=== PATIENT | female | born 1960 | race Caucasian/White ===

== ENCOUNTER 2019-08-21 | Emergency (ER) | payer MEDICARE ==
[2019-08-21 12:16] LABS: HEMOGLOBIN 11.3 g/dl (12.0-16.0); IMMATURE GRANULOCYTES 0.3 % (0.0-5.0); MEAN CELL VOLUME 93.4 fL CALC (80.0-100.0); MEAN CORPUSCULAR HGB CONC 33.2 g/L CALC (32.0-36.0); NEUT# 7.39 thou/uL (2.00-7.15); RED BLOOD COUNT 3.64 mill/uL (4.20-5.60); RED CELL DISTRI WIDTH 12.9 % (11.5-15.5)
[2019-08-21 12:37] LABS: ACT PARTIAL THROMBO TIME 29.2 SECONDS (20.0-32.5)
[2019-08-21 12:40] LABS: ALBUMIN 4.1 g/dL (3.2-5.0); ALKALINE PHOSPHATASE 57 u/l (38-126); ANION GAP 12 (6-22 (CALC)); BILIRUBIN, TOTAL 0.5 mg/dL (0.0-1.4); BUN 7 mg/dL (7-17); BUN/CREATININE RATIO 14 (12-20 (CALC)); CARBON DIOXIDE 24 mmol/l (22-30); CHLORIDE 101 mmol/l (95-108); CREATININE 0.5 mg/dL (0.5-1.0); GFR > 60 ML/MIN (>=60 (CALC)); GFR FOR AFR.AMER. > 60 ML/MIN (>=60 (CALC)); POTASSIUM 4.4 mmol/l (3.5-5.1); SGOT/AST 23 u/l (14-36); SODIUM 133 mmol/l (137-146); TOTAL PROTEIN 7.3 g/dL (6.3-8.2)
[2019-08-21] MEDS ORDERED: MEDDOSEPAK PO (14:05)
[2019-08-21] MEDS ORDERED: ASPIRIN81 MG PO (14:08)
[2019-08-21] MEDS ORDERED: CELEXA40 M1 PO (14:26)
[2019-08-21] MEDS ORDERED: CYCLOBENZAPRINE HCL PO (14:27)
[2019-08-21] MEDS ORDERED: ELIQUIS2.5 MG PO (14:28)
[2019-08-21] MEDS ORDERED: LISINOPRIL2.5 MG PO (14:29)
[2019-08-21] MEDS ORDERED: FLUTICASONE (14:29)
[2019-08-21] MEDS ORDERED: LORATADINE10 M1 PO (14:29)
[2019-08-21] MEDS ORDERED: ROSUVASTATIN CAL5 MG (14:30)
== END 2019-08-21 15:11 | disposition home or self-care (01) ==
DX: J43.9 Emphysema, unspecified (principal); Z86.711 Personal history of pulmonary embolism; Z79.01 Long term (current) use of anticoagulants; R06.02 Shortness of breath
CPT/HCPCS: Q9967

== ENCOUNTER 2019-09-19 13:49 | Observation (INO) | payer MEDICARE ==
[~2019-09-19] VITALS: Ht 160 cm; Wt 47.2 kg
[~2019-09-19 13:49] MED LIST: ASPIRIN81 MG PO; CELEXA40 M1 PO; CYCLOBENZAPRINE HCL PO; ELIQUIS2.5 MG PO; FLUTICASONE; LISINOPRIL2.5 MG PO; LORATADINE10 M1 PO; MEDDOSEPAK PO; ROSUVASTATIN CAL5 MG
--- NOTE | 2019-09-19 13:50 | NUR ---
PATIENT TO ROOM FOR EXAM. BEDSIDE TRIAGE COMPLETED.
[2019-09-19 14:51] LABS: HEMATOCRIT 34.6 % (37.0-47.0); HEMOGLOBIN 11.6 g/dl (12.0-16.0); IMMATURE GRANULOCYTES 0.7 % (0.0-5.0); MEAN CELL VOLUME 92.3 fL CALC (80.0-100.0); MEAN CORPUSCULAR HGB 30.9 pG CALC (26.0-32.0); MEAN CORPUSCULAR HGB CONC 33.5 g/L CALC (32.0-36.0); NEUT# 22.61 thou/uL (2.00-7.15); RED BLOOD COUNT 3.75 mill/uL (4.20-5.60); RED CELL DISTRI WIDTH 13.9 % (11.5-15.5)
--- NOTE | 2019-09-19 14:52 | NUR ---
PT RESTING QUIETLY ON STRETCHER, COUGHING, STATES "I GOT THE FLU SHOT HERE IN HOSPITAL LAST TIME BUT I JUST DONT FEEL GOOD"
[2019-09-19 15:13] LABS: ALBUMIN 4.4 g/dL (3.2-5.0); ALKALINE PHOSPHATASE 73 u/l (38-126); ANION GAP 14 (6-22 (CALC)); BILIRUBIN, TOTAL 0.7 mg/dL (0.0-1.4); BUN 12 mg/dL (7-17); BUN/CREATININE RATIO 26 (12-20 (CALC)); CARBON DIOXIDE 25 mmol/l (22-30); CHLORIDE 97 mmol/l (95-108); CREATININE 0.5 mg/dL (0.5-1.0); GFR > 60 ML/MIN (>=60 (CALC)); GFR FOR AFR.AMER. > 60 ML/MIN (>=60 (CALC)); POTASSIUM 4.2 mmol/l (3.5-5.1); SGOT/AST 26 u/l (14-36); SODIUM 133 mmol/l (137-146); TOTAL PROTEIN 8.4 g/dL (6.3-8.2)
[2019-09-19 15:25] LABS: MYOGLOBIN 22 ng/mL (0 - 62)
[2019-09-19] MEDS ORDERED: SPIRIVA RE1.25 MCG/A IN (15:29)
[2019-09-19] MEDS ORDERED: VENTOLIN H108 MCG/AC IN (15:30)
--- NOTE | 2019-09-19 15:45 | NUR ---
PT RESTING QUIETLY ON STRETCHER.
[2019-09-19 17:04] LABS: URINE BILIRUBIN - DIPSTICK NEGATIVE (NEGATIVE); URINE BLOOD DIPSTICK MODERATE (NEGATIVE); URINE COLOR YELLOW; URINE GLUCOSE - DIPSTICK NEGATIVE (NEGATIVE); URINE KETONE NEGATIVE (NEGATIVE); URINE LEUK ESTERASE TRACE (NEGATIVE); URINE NITRITE - DIPSTICK NEGATIVE (Negative); URINE PROTEIN - DIPSTICK 30 mg/dL (NEG-TRACE); URINE SPECIFIC GRAVITY 1.025; URINE UROBILINOGEN - DIPSTICK 0.2 E.U./dL (0.2)
[2019-09-19 17:13] LABS: URINE SQUAMOUS EPITHELIAL CELL FEW EPI/hpf (0-FEW); URINE WBC 0-2 WBC/hpf (0-5)
--- NOTE | 2019-09-19 17:17 | NUR ---
NO TEMPERATURE DURING HOSPITAL STAY. WBC COUNT HIGH, DRRenee ASKING PT ABOUT ANY STEROID USE BESIDES NASAL SPRAY ADVISED OF POSSIBLE ADMISSION.
--- NOTE | 2019-09-19 17:19 | NUR ---
ADVISED PT OF FLU B POSITIVE.
--- NOTE | 2019-09-19 18:00 | NUR ---
PT VOMITING. NOTIFIED. NEW ORDERS RECEIVED
--- NOTE | 2019-09-19 18:09 | NUR ---
TEMP REETAKEN 98.9
[2019-09-19 18:10] LABS: AMYLASE < 30 u/l (30-110); LIPASE < 10 u/l (23-300)
--- NOTE | 2019-09-19 18:58 | NUR ---
REPORT GIVEN TO MED SURG FLOOR, ROOM IS NOT READY BUT SOON CLEAN THEY WILL CALL
--- NOTE | 2019-09-19 19:33 | NUR ---
PT ARRIVED TO FLOOR VIA WHEELCHAIR ACCOMPAINED BY ER STAFF. PT ALERT AND ORIENTED. AMBULATED FROM CHAIR TO BED WITH NO ASSISTANCE NEEDED. IV SITE IN RAC APPEARS HEALTHY. PT DENIES ANY PAIN OR DISCOMFORT. NO APPARENT RESPIRATORY DISTRESS NOTED. PT ORIENTED TO ROOM AND CALL LIGHT SYSTEM. CALL LIGHT WITHIN REACH. WILL CONTINUE TO MONITOR.
--- NOTE | 2019-09-19 19:35 | NUR ---
PT TAKEN TO MED SURG WITH TELEMETRY AND W/F
[2019-09-19 19:37] VITALS: BP 110/67
--- NOTE | 2019-09-19 23:11 | NUR ---
PT RESTING IN BED WITH EYES CLOSED. NO APPARENT DISTRESS NOTED. CALL LIGHT WITHIN REACH. WILL CONTINUE TO MONITOR.
[2019-09-20] VITALS (7 sets, daily range): BP systolic 101–143; BP diastolic 59–75
--- NOTE | 2019-09-20 03:21 | NUR ---
PT RESTING IN BED WITH EYES CLOSED. NO APPARENT DISTRESS NOTED. CALL LIGHT WITHIN REACH. WILL CONTINUE TO MONITOR.
[2019-09-20 07:02] LABS: HEMATOCRIT 32.9 % (37.0-47.0); HEMOGLOBIN 10.9 g/dl (12.0-16.0); MEAN CELL VOLUME 93.2 fL CALC (80.0-100.0); MEAN CORPUSCULAR HGB 30.9 pG CALC (26.0-32.0); MEAN CORPUSCULAR HGB CONC 33.1 g/L CALC (32.0-36.0); RED BLOOD COUNT 3.53 mill/uL (4.20-5.60); RED CELL DISTRI WIDTH 13.9 % (11.5-15.5)
[2019-09-20 07:28] LABS: ANION GAP 13 (6-22 (CALC)); BUN 13 mg/dL (7-17); BUN/CREATININE RATIO 35 (12-20 (CALC)); CARBON DIOXIDE 25 mmol/l (22-30); CHLORIDE 101 mmol/l (95-108); CREATININE 0.4 mg/dL (0.5-1.0); GFR > 60 ML/MIN (>=60 (CALC)); GFR FOR AFR.AMER. > 60 ML/MIN (>=60 (CALC)); SODIUM 134 mmol/l (137-146)
--- NOTE | 2019-09-20 08:16 | NUR ---
ASSESSMENT IS COMPLETED:IV SITE IS FREE FROM REDNESS OR EDEMA. HR IS REG,PULSES ARE STRONG X4, ABD IS SOFT WITH ACTIVE BS. BREATH SOUNDS ARE COARSE IN THE LEFT LUNG. TELE MONITOR IN PLACE. CONTINUE TO OSBERVE AND MONITOR.
--- NOTE | 2019-09-20 12:30 | NUR ---
PT IS RELAXING IN BED WITH NO DISTRESS NOTED. IV SITE IS FREE FROM REDNESS OR EDEMA. PT WAS VOMITING. AND GIVEN MEDICATION FOR IT. CONTINUE TO OBSERVE AND MONITOR
--- NOTE | 2019-09-20 12:45 | NUR ---
VOMITED 100CC OF FLUID
[2019-09-20] MEDS ORDERED: SYMBICORT1 AE1 IN (14:16)
[2019-09-20] MEDS ORDERED: CRESTOR40 MG PO (14:17)
[2019-09-20] MEDS ORDERED: ELIQUIS5 MG PO (14:19)
[2019-09-20] MEDS ORDERED: FLUTICASONE PROPIONATE (14:21)
[2019-09-20] MEDS ORDERED: CELEXA20 MG PO (14:25)
[2019-09-20] MEDS ORDERED: ZESTRIL5 MG PO (14:26)
[2019-09-20] MEDS ORDERED: COREG6.25 MG PO (14:28)
[2019-09-20] MEDS ORDERED: OS-CAL 500500 M1 PO (14:29)
[2019-09-20] MEDS ORDERED: PROLIA60 MG/ML SC (14:45)
--- NOTE | 2019-09-20 16:30 | NUR ---
PT IS RELAXING IN BED WITH NO DISTRESS NOTED. O2 IN PLACE. TOLERATED CHICKEN BROTH FOR LUNCH. REQUESTING FOR SUPPER. CONTINUE TO OBSERVE AND MONITOR.
--- NOTE | 2019-09-20 19:52 | NUR ---
PT. SITTING UP IN BED WITH NO RESP. DISTRESS NOTED;C/O RIGHT SIDED NECK PAIN 01/29 AND MEDICATED WITH ORDERED PRN TRAMADOL ALONG WITH OTHER SCHED MEDS. ASSESSMENT COMPLETED. DENIES FURTHER NEEDS. CALL LIGHT IS IN REACH. WILL CONTINUE TO MONITOR.
--- NOTE | 2019-09-20 23:53 | NUR ---
RESTING IN BED WITH NO DISTRESS NOTED;DENIES NEEDS. ICE PROVIDED. VSS. URINE EMPTIED. CALL LIGHT IS IN REACH. ENCOURAGED TO CALL FOR ANY NEEDS.
--- NOTE | 2019-09-21 02:17 | NUR ---
RESTING IN BED WITH NO DISTRESS NOTED; RESP. EVEN AND UNLABORED. CALL LIGHT IS IN REACH.
[2019-09-21 03:44] VITALS: BP 104/68
--- NOTE | 2019-09-21 03:45 | NUR ---
VSS. NO DISTRESS NOTED; DENIES NEEDS/PAIN. VOICES NO CONCERNS. CALL LIGHT IS IN REACH.
[2019-09-21 07:48] VITALS: BP 109/69
--- NOTE | 2019-09-21 08:20 | NUR ---
ASSESSMENT DONE. TELE IN PLACE. PT IS A&O X3. PT STATED SOME PAIN IN NECK BUT DENIES PAIN MEDICATION AT THIS TIME. 02 AT 2L VIA NC. IVF INFUSING WELL. PT DENIES NEEDS AT THIS TIME. CALL LIGHT IN REACH.
[2019-09-21 10:39] VITALS: BP 112/65
--- NOTE | 2019-09-21 12:12 | NUR ---
PT IS USING HER CELL PHONE WITH NO S/S OF DISTRESS NOTED. PT DENIES NEEDS AT THIS TIME. CALL LIGHT IN REACH.
[2019-09-21] MEDS ORDERED: TAM75CAP PO ×2 (13:11)
[2019-09-21] MEDS ORDERED: LEVAQUIN750 MG PO (13:12)
--- NOTE | 2019-09-21 14:56 | NUR ---
Discharge instructions given. Patient verbalizes understanding of same. Discharged in stable condition via Wheelchair to Home with staff. All belongings sent with pt.
== END 2019-09-21 14:46 | disposition home or self-care (01) ==
LOC: ED 13:49 → ED-I 17:20 → ED 17:43 → MS2 17:44
PROVIDERS: Emergency Medicine; Internal Medicine; ADMIT Internal Medicine; ATTEND Internal Medicine
DX: J10.1 Influenza due to other identified influenza virus with other respiratory manifestations (principal); J43.9 Emphysema, unspecified; J96.11 Chronic respiratory failure with hypoxia; I11.0 Hypertensive heart disease with heart failure; I50.9 Heart failure, unspecified; E87.1 Hypo-osmolality and hyponatremia; Z79.01 Long term (current) use of anticoagulants; Z86.711 Personal history of pulmonary embolism; Z99.81 Dependence on supplemental oxygen; Z87.891 Personal history of nicotine dependence
CPT/HCPCS: G0378; J1956

== ENCOUNTER 2019-09-21 20:12 | Observation (INO) | payer MEDICARE ==
[~2019-09-21] VITALS: Ht 160 cm; Wt 47.5 kg
[~2019-09-21 20:12] MED LIST changes: +CELEXA20 MG PO; +COREG6.25 MG PO; +CRESTOR40 MG PO; +ELIQUIS5 MG PO; +FLUTICASONE PROPIONATE; +LEVAQUIN750 MG PO; +OS-CAL 500500 M1 PO; +PROLIA60 MG/ML SC; +SPIRIVA RE1.25 MCG/A IN; +SYMBICORT1 AE1 IN; +TAM75CAP PO; +VENTOLIN H108 MCG/AC IN; +ZESTRIL5 MG PO
--- NOTE | 2019-09-21 20:12 | NUR ---
PATIENT TO ROOM 15 VIA EMS STRETCHER. UNDRESSED INTO A GOWN. PLACED ON MONITOR. TRIAGE COMPLETED AT BEDSIDE. AWAITING MD ANDERSON.
--- NOTE | 2019-09-21 20:25 | NUR ---
PT STATES THAT SHE WAS JUST RELEASED FROM [facility] TODAY. PT STATES THAT SHE WAS FEELING GOOD WHEN SHE LEFT, THIS EVENING SHE BECAME NAUSEATED AND VOMITING. PT IS ON HOME 02 AT 2 LPM. PT DENIES ANY CP, OR WORSENING SOB, PT STATES FEELING WEAK.
[2019-09-21 21:04] LABS: HEMATOCRIT 29.5 % (37.0-47.0); IMMATURE GRANULOCYTES 0.3 % (0.0-5.0); MEAN CELL VOLUME 91.6 fL CALC (80.0-100.0); MEAN CORPUSCULAR HGB 31.1 pG CALC (26.0-32.0); MEAN CORPUSCULAR HGB CONC 33.9 g/L CALC (32.0-36.0); NEUT# 9.6 thou/uL (2.00-7.15); RED BLOOD COUNT 3.22 mill/uL (4.20-5.60); RED CELL DISTRI WIDTH 13.4 % (11.5-15.5)
[2019-09-21 21:15] LABS: ALBUMIN 3.7 g/dL (3.2-5.0); ALKALINE PHOSPHATASE 76 u/l (38-126); AMYLASE 31 u/l (30-110); ANION GAP 17 (6-22 (CALC)); BUN 15 mg/dL (7-17); BUN/CREATININE RATIO 45 (12-20 (CALC)); CARBON DIOXIDE 23 mmol/l (22-30); CHLORIDE 95 mmol/l (95-108); CREATININE 0.3 mg/dL (0.5-1.0); GFR > 60 ML/MIN (>=60 (CALC)); GFR FOR AFR.AMER. > 60 ML/MIN (>=60 (CALC)); LIPASE 12 u/l (23-300); POTASSIUM 3.8 mmol/l (3.5-5.1); SGOT/AST 28 u/l (14-36); SODIUM 131 mmol/l (137-146)
--- NOTE | 2019-09-21 21:41 | NUR ---
BEDSIDE REPORT WITH MAJOR THOMASON
--- NOTE | 2019-09-21 21:45 | NUR ---
INSTRUCTED PT ON CLEAN CATCH URINE TO OBTAIN SPECIMEN.
[2019-09-21 22:26] LABS: URINE BILIRUBIN - DIPSTICK NEGATIVE (NEGATIVE); URINE BLOOD DIPSTICK MODERATE (NEGATIVE); URINE COLOR YELLOW; URINE GLUCOSE - DIPSTICK NEGATIVE (NEGATIVE); URINE KETONE 40 mg/dL (NEGATIVE); URINE LEUK ESTERASE NEGATIVE (NEGATIVE); URINE NITRITE - DIPSTICK NEGATIVE (Negative); URINE PH 5.5 (4.5-8.0); URINE PROTEIN - DIPSTICK TRACE mg/dL (NEG-TRACE); URINE UROBILINOGEN - DIPSTICK 0.2 E.U./dL (0.2)
--- NOTE | 2019-09-21 22:30 | NUR ---
TRIED TO CALL REPORT TO FLOOR. PADDY GARCIA STATED FORREST IN ROOM WILL CALL BACK.
[2019-09-21 22:37] LABS: URINE SQUAMOUS EPITHELIAL CELL FEW EPI/hpf (0-FEW)
--- NOTE | 2019-09-21 22:55 | NUR ---
Admission Note Report Given to: PADDY CLAYTON Transported by: X Wheelchair Stretcher Transported with: X Nurse Transporter X Patent IV X O2 [employer] Faculty Member Location: ICU X [facility] PT HOPPED OUT OF BED ONTO STRETCHER. ARRANGED CALL [facility] AND PHONE IMMEDIATELY TO WHERE SHE PREFERRED THEM. PT ASKING ABOUT GREEN FOLDER. NONE NOTED IN ROOM WHEN I TRANSPORTED PT. ONLY HAD SHIRT THAT WAS ON COUNTER HER SHOES AND PHONE WITH GRAPE GROWER IN HER HANDS.
--- NOTE | 2019-09-21 23:00 | NUR ---
COMMUNICATION HAND OFF REPORT RECEIVED FROM LESLIE GONSALVES.
--- NOTE | 2019-09-21 23:15 | NUR ---
NEW ADMIT FROM ER. PATIENT ORIENTED TO ROOM, CALL LIGHT AND REMOTE CONTROL. BED IN LOWEST POSITION CALL LIGHT WITHIN EASY REACH. PATIENT IS ABLE TO MAKE NEEDS KNOWN. LINE WORKER WILL CONTINUE TO MONITOR
[2019-09-21 23:20] VITALS: BP 130/81
--- NOTE | 2019-09-22 00:18 | NUR ---
PATIENT WITH ONE EPISODE OF EMESIS. EMESIS APPROXIMATELY 30CC, GRAINY AND GREEN IN COLOR. IV ZOFRAN ADMINISTERED. REEL HOOKER WILL CONTINUE TO MONITOR
[2019-09-22 04:00] VITALS: BP 136/88
--- NOTE | 2019-09-22 04:12 | NUR ---
PATIENT RESTING QUIETLY IN BED. RESPIRATION EVEN AND UNLABORED. NO SIGN OR SYMPTOM OF DISTRESS. BACTERIOLOGIST DAIRY WILL CONTINUE TO MONITOR
--- NOTE | 2019-09-22 06:44 | NUR ---
PHENERGAN ADMINISTERED FOR COMPLAINT OF NAUSEA WITH GOOD EFFECT. PT WITH EYES CLOSED RESPIRATION EVEN AND UNLABORED.
[2019-09-22 08:45] VITALS: BP 143/86
--- NOTE | 2019-09-22 08:45 | NUR ---
ASSESSMENT IS COMPLETED: IV SITE IS FREE FROM REDNESS OR EDEMA. HR IS REG,PULSES ARE STRONG X4, ABD IS SOFT WITH ACTIVE BS. BREATH SOUNDS ARE CLEAR, BILATERALLY. R SIDE OF THE FACE IS SWOLLEN,.
--- NOTE | 2019-09-22 12:30 | NUR ---
PT IS RELAXING IN BED WITH NO DISTRESS NOTED. IV SITE IS FREE FROM REDNESS OR EDEMA.
--- NOTE | 2019-09-22 14:17 | NUR ---
IV SITE REDRESSED. DUE TO MOVING AROUND ON THE SITE. PT TOLERATED WELL.
[2019-09-22 15:30] VITALS: BP 134/81
--- NOTE | 2019-09-22 16:30 | NUR ---
PT HAS HAD FAMILY VISITING WITH NO DISTRESS NOTED. IV SITE IS FREE FROM REDNESS OR EDEMA.
--- NOTE | 2019-09-22 18:08 | NUR ---
PT SITTING IN BED. A&O X3. O2 VIA NC @2L IN PLACE. DROPLET PERCAUTIONS REMAIN. PT C/O OF NECK DISCOMFORT, OFFERED WARM PACK TO HELP WITH THE PAIN. BLEEDING NOTED AROUND IV SITE, NO SWELLING OR LEAKING NOTED. DRESSING TO BE CHANGED. NO OTHER NEEDS AT THIS TIME. DISCUSSED POC. ASSESSMENT COMPLETED. CALL LIGHT IN REACH. CONTINUE TO MONITOR.
[2019-09-22 19:02] VITALS: BP 150/86
--- NOTE | 2019-09-22 22:30 | NUR ---
PT SITTING IN BED WATCHING TV. NO DISTRESS NOTED. CALL LIGHT IN REACH. CONTINUE TO MONITOR
--- NOTE | 2019-09-23 02:10 | NUR ---
PT LAYING IN BED, REQUEST FOR FRESH WATER AND ICE WAS VERBALIZED. NO DISTRESS NOTED. CALL LIGHT IN REACH. CONTINUE TO MONITOR.
[2019-09-23 04:40] VITALS: BP 147/90
[2019-09-23 06:39] LABS: HEMATOCRIT 29.7 % (37.0-47.0); HEMOGLOBIN 10.3 g/dl (12.0-16.0); MEAN CELL VOLUME 91.4 fL CALC (80.0-100.0); MEAN CORPUSCULAR HGB 31.7 pG CALC (26.0-32.0); MEAN CORPUSCULAR HGB CONC 34.7 g/L CALC (32.0-36.0); RED BLOOD COUNT 3.25 mill/uL (4.20-5.60); RED CELL DISTRI WIDTH 13.2 % (11.5-15.5)
[2019-09-23 06:55] LABS: ALBUMIN 3.3 g/dL (3.2-5.0); ALKALINE PHOSPHATASE 65 u/l (38-126); ANION GAP 14 (6-22 (CALC)); BILIRUBIN, TOTAL 0.9 mg/dL (0.0-1.4); BUN 7 mg/dL (7-17); BUN/CREATININE RATIO 18 (12-20 (CALC)); CARBON DIOXIDE 25 mmol/l (22-30); CHLORIDE 98 mmol/l (95-108); CREATININE 0.4 mg/dL (0.5-1.0); GFR > 60 ML/MIN (>=60 (CALC)); GFR FOR AFR.AMER. > 60 ML/MIN (>=60 (CALC)); POTASSIUM 3.3 mmol/l (3.5-5.1); SGOT/AST 18 u/l (14-36); SODIUM 134 mmol/l (137-146); TOTAL PROTEIN 6.5 g/dL (6.3-8.2)
[2019-09-23 08:15] VITALS: BP 137/72
--- NOTE | 2019-09-23 08:15 | NUR ---
ASSESSMENT IS COMPLTED: IV SITE IS FREE FROM REDNESS OR EDEMA. HR IS REG,PULSES ARE STRONG X4, ABD IS SOFT WITH ACTIVE BS. BREATH SOUNDS ARE CLEAR, BILATERALLY, NO C/O SOB. O2 @ 2LITERS WITH NC. TELE MONITOR IN PLACE. CONTINUE TO OBSERVE AND MONITOR.
[2019-09-23 09:26] VITALS: BP 137/72
--- NOTE | 2019-09-23 12:00 | NUR ---
PT IS RELAXING IN BED FAMILY HAS BEEN IN TO VISIT WITH PT. DR DIOR IN TO VISIT WITH PT. CONTINUE TO OBSERVE AND MONITOR.
[2019-09-23] MEDS ORDERED: CIPROFLOXACN500 MG PO (14:50)
--- NOTE | 2019-09-23 15:30 | NUR ---
IV SITE DISCONTNUED CATHETER INTACT. NO REDNESS OR EDEMA. FAMILY COMING TO TRANSPORT PT HOME. DISCHARGE INSTRUCTIONS GIVEN AND VERBALIZED UNDERSTANDING. CONTINUE TO OBSERVE AND MONITOR.
--- NOTE | 2019-09-23 15:35 | NUR ---
Discharge instructions given. Patient verbalizes understanding of same. Discharged in stable condition via Wheelchair to Home with family. All belongings sent with pt.
== END 2019-09-23 15:55 | disposition home or self-care (01) ==
LOC: ED 20:12 → ED-I 21:44 → ED 22:04 → MS2 22:05
PROVIDERS: Family Medicine; Nurse Practitioner Family; ADMIT Internal Medicine; ATTEND Internal Medicine
DX: R11.2 Nausea with vomiting, unspecified (principal); J10.1 Influenza due to other identified influenza virus with other respiratory manifestations; J43.9 Emphysema, unspecified; J96.11 Chronic respiratory failure with hypoxia; I11.0 Hypertensive heart disease with heart failure; I50.9 Heart failure, unspecified; Z86.711 Personal history of pulmonary embolism; Z99.81 Dependence on supplemental oxygen; Z87.891 Personal history of nicotine dependence; Z79.01 Long term (current) use of anticoagulants; J11.1 Influenza due to unidentified influenza virus with other respiratory manifestations; E87.1 Hypo-osmolality and hyponatremia; R06.02 Shortness of breath; R05 Cough
CPT/HCPCS: G0378; J1956; S0164

== ENCOUNTER 2020-05-04 08:58 | Emergency (ER) | payer MEDICARE ==
[~2020-05-04] VITALS: Ht 160 cm; Wt 48.2 kg
[~2020-05-04 08:58] MED LIST changes: +CIPROFLOXACN500 MG PO
[2020-05-04] MEDS ORDERED: BUSPIRONE5 MG PO (09:55)
[2020-05-04] MEDS ORDERED: MIRTAZAPINE15 MG PO (09:57)
[2020-05-04 09:58] LABS: HEMATOCRIT 33.6 % (37.0-47.0); HEMOGLOBIN 10.8 g/dl (12.0-16.0); IMMATURE GRANULOCYTES 0.2 % (0.0-5.0); MEAN CORPUSCULAR HGB 30.9 pG CALC (26.0-32.0); MEAN CORPUSCULAR HGB CONC 32.1 g/dL CAL (32.0-36.0); NEUT# 5.87 thou/uL (2.00-7.15); RED BLOOD COUNT 3.5 mill/uL (4.20-5.60); RED CELL DISTRI WIDTH 13.6 % (11.5-15.5)
[2020-05-04] MEDS ORDERED: FUROSEMIDE20 MG PO (09:59)
[2020-05-04] MEDS ORDERED: BONIVA150 M1 (10:03)
[2020-05-04] MEDS ORDERED: TESSALON PERLE100 MG PO (10:05)
[2020-05-04] MEDS ORDERED: ONDANSETRON4 MG PO (10:07)
[2020-05-04 10:08] LABS: ALKALINE PHOSPHATASE 73 u/l (38-126); BUN 9 mg/dL (7-17); BUN/CREATININE RATIO 20 (12-20 (CALC)); CARBON DIOXIDE 29 mmol/l (22-30); CHLORIDE 105 mmol/l (95-108); CREATININE 0.5 mg/dL (0.5-1.0); GFR > 60 ML/MIN (>=60 (CALC)); GFR FOR AFR.AMER. > 60 ML/MIN (>=60 (CALC)); LIPASE 33 u/l (23-300); SGOT/AST 29 u/l (14-36); SODIUM 138 mmol/l (137-146); TOTAL PROTEIN 7.4 g/dL (6.3-8.2)
[2020-05-04] MEDS ORDERED: MULTI VIT PO (10:08)
[2020-05-04 10:09] LABS: ALBUMIN 4.3 g/dL (3.2-5.0); ANION GAP 8 (6-22 (CALC)); BILIRUBIN, TOTAL 0.3 mg/dL (0.0-1.4); POTASSIUM 4.1 mmol/l (3.5-5.1)
[2020-05-04 12:45] VITALS: BP 121/66
[2020-05-04] MEDS ORDERED: ULTRAM50 MG PO (13:03)
== END 2020-05-04 12:45 | disposition home or self-care (01) ==
LOC: ED 08:58
DX: M79.632 Pain in left forearm (principal); I10 Essential (primary) hypertension; Z86.711 Personal history of pulmonary embolism; I25.2 Old myocardial infarction

== ENCOUNTER 2020-11-04 09:56 | Emergency (ER) | payer MEDICARE, MEDICAID ==
[~2020-11-04] VITALS: Ht 160 cm; Wt 47.0 kg
[~2020-11-04 09:56] MED LIST changes: +BONIVA150 M1; +BUSPIRONE5 MG PO; +FUROSEMIDE20 MG PO; +MIRTAZAPINE15 MG PO; +MULTI VIT PO; +ONDANSETRON4 MG PO; +TESSALON PERLE100 MG PO; +ULTRAM50 MG PO
[2020-11-04] MEDS ORDERED: LORAZEPAM0.5 MG PO (10:32)
[2020-11-04 10:33] LABS: HEMATOCRIT 33.2 % (37.0-47.0); HEMOGLOBIN 10.9 g/dl (12.0-16.0); IMMATURE GRANULOCYTES 0.3 % (0.0-5.0); MEAN CELL VOLUME 96.2 fL CALC (80.0-100.0); MEAN CORPUSCULAR HGB 31.6 pG CALC (26.0-32.0); MEAN CORPUSCULAR HGB CONC 32.8 g/dL CAL (32.0-36.0); NEUT# 4.15 thou/uL (2.00-7.15); RED BLOOD COUNT 3.45 mill/uL (4.20-5.60); RED CELL DISTRI WIDTH 13.2 % (11.5-15.5)
[2020-11-04 10:56] LABS: ALBUMIN 4.3 g/dL (3.2-5.0); ALKALINE PHOSPHATASE 66 u/l (38-126); ANION GAP 9 (6-22 (CALC)); BILIRUBIN, TOTAL 0.6 mg/dL (0.0-1.4); BUN 7 mg/dL (7-17); BUN/CREATININE RATIO 15 (12-20 (CALC)); CARBON DIOXIDE 26 mmol/l (22-30); CHLORIDE 105 mmol/l (95-108); CREATININE 0.5 mg/dL (0.5-1.0); GFR > 60 ML/MIN (>=60 (CALC)); GFR FOR AFR.AMER. > 60 ML/MIN (>=60 (CALC)); LIPASE 27 u/l (23-300); SGOT/AST 45 u/l (14-36); SODIUM 136 mmol/l (137-146); TOTAL PROTEIN 7.6 g/dL (6.3-8.2)
[2020-11-04 10:59] LABS: D-DIMER 0.29 mg/L (0.19-0.60)
[2020-11-04 11:03] LABS: ACT PARTIAL THROMBO TIME 25.1 SECONDS (20.0-32.5); PROTHROMBIN TIME 10.2 SECONDS (9.0-12.5)
[2020-11-04 14:21] VITALS: BP 116/68
== END 2020-11-04 14:22 | disposition home or self-care (01) ==
LOC: ED 09:56
DX: R07.9 Chest pain, unspecified (principal); I11.0 Hypertensive heart disease with heart failure; I50.9 Heart failure, unspecified; J43.9 Emphysema, unspecified; I25.2 Old myocardial infarction; Z86.711 Personal history of pulmonary embolism; Z22.7 Latent tuberculosis